=== PATIENT | male | born 2000 | race Caucasian/White ===

== ENCOUNTER → 2019-11-06 | Outpatient (CLI) | payer BC ==
--- NOTE | 2019-11-06 13:51 | ECHOF ---
Referral Reason:Palpitations R00.2 Elevated blood pressure R03.0 MEASUREMENTS -------- HEIGHT: 180.3 cm WEIGHT: 86.2 kg BP: 115/62 RVIDd: 2.7 cm (< 3.3) IVSd: 1.1 cm (0.6 - 1.1) LVIDd: 4.6 cm (3.9 - 5.3) LVPWd: 1.2 cm (0.6 - 1.1) IVSs: 1.5 cm LVIDs: 2.8 cm LVPWs: 2.0 cm LAESV Index (A-L): 18.63 ml/m Ao Diam: 2.9 cm (2.0 - 3.7) AV Cusp: 2.1 cm (1.5 - 2.6) LA Diam: 2.5 cm (2.7 - 3.8) MV EXCURSION: 15.293 mm (> 18.000) MV EF SLOPE: 117 mm/s (70 - 150) EPSS: 0.9 cm MV E Miguel: 0.82 m/s MV DecT: 163 ms MV A Miguel: 0.56 m/s MV E/A Ratio: 1.48 RAP: 5.00 mmHg RVSP: 19.54 mmHg FINDINGS -------- Sinus rhythm. This was a technically good study. The left ventricular size is normal. Left ventricular wall thickness is normal. Overall left vent ricular systolic function is normal with, an EF between 55 - 60 %. The diastolic filling pattern is normal for the age of the patient 8.01. Right side appears enlarged but measures within normal limits. The left atrial size is normal. The right atrial size is normal. The aortic valve is trileaflet and appears structurally normal. The mitral valve is normal. There is trace mitral regurgitation. The tricuspid valve appears structurally normal. Trace tricuspid regurgitation present. Right marcus tricular systolic pressure is normal at < 35 mmHg. There is no pulmonic regurgitation present. The aortic root size is normal. Normal inferior vena cava with normal inspiratory collapse consistent with estimated right atrial pre ssure of 5 mmHg. There is no pericardial effusion. CONCLUSIONS -------- 1. Sinus rhythm. 2. This was a technically good study. 3. The left ventricular size is normal. 4. Left ventricular wall thickness is normal. 5. Overall left ventricular systolic function is normal with, an EF between 55 - 60 %. 6. The diastolic filling pattern is normal for the age of the patient 8.01 7. Right side appears enlarged but measures within normal limits. 8. The left atrial size is normal. 9. The right atrial size is normal. 10. The aortic valve is trileaflet and appears structurally normal. 11. The mitral valve is normal. 12. There is trace mitral regurgitation. 13. The tricuspid valve appears structurally normal. 14. Trace tricuspid regurgitation present. 15. Right ventricular systolic pressure is normal at < 35 mmHg. 16. There is no pulmonic regurgitation present. 17. The aortic root size is normal. 18. Normal inferior vena cava with normal inspiratory collapse consistent with estimated right atrial pressure of 5 mmHg. 19. There is no pericardial effusion. MULTI SHARE PROGRAM COORDINATOR: Ruba Vigil RDCS
== END | disposition home or self-care (01) ==
LOC: RADECHMAIN 11:11
PROVIDERS: ATTEND Pediatrics Adolescent Medicine
DX: R00.2 Palpitations (principal); R03.0 Elevated blood-pressure reading, without diagnosis of hypertension
CPT/HCPCS: 93306

== ENCOUNTER → 2023-04-21 | Outpatient (CLI) | payer BC ==
--- NOTE | 2023-04-21 11:49 | US ---
EXAMINATION TYPE: US groin LT DATE OF EXAM: 04/21/2023 COMPARISON: NONE CLINICAL INDICATION: Male, 22 years old with history of R19.00 INTRA-ABD AND PELVIC SWELLING, MASS AN D LUM; lt groin lump TECHNIQUE: Multiple grayscale and color Doppler ultrasound images of the left groin were obtained. FINDINGS/IMPRESSION: There is a indeterminate small 4 mm hypoechoic lesion within the soft tissues o f the left groin. No internal color flow demonstrated. No other lesion identified. No fluid collectio n or hernia. Possible small lymph node. Consider further evaluation with sampling as clinically indic ated.
== END | disposition home or self-care (01) ==
LOC: RADUSWWP 10:17
PROVIDERS: ATTEND Family Medicine
DX: R19.00 Intra-abdominal and pelvic swelling, mass and lump, unspecified site (principal)

== ENCOUNTER → 2023-05-04 | Outpatient (CLI) | payer BC ==
[2023-05-04 15:28] LABS: ALT 27 U/L (10-49); AST 34 U/L (14-35); Albumin 4.8 d/dL (3.8-4.9); Alkaline Phosphatase 75 U/L (41-126); Blood Urea Nitrogen 12.9 mg/dL (9.0-27.0); Calcium 9.5 mg/dL (8.7-10.3); Carbon Dioxide 26.3 mmol/L (21.6-31.8); Chloride 104 mmol/L (96-109); Chol/HDL Ratio 3.11 Ratio; Glucose 92 mg/dL (70-110); LDL Cholesterol,Calculated 92.1 mg/dL (0.0-131.0); Potassium 4.2 mmol/L (3.5-5.5); Sodium 141 mmol/L (135-145); Total Bilirubin 0.5 mg/dL (0.3-1.2); Total Protein 6.8 d/dL (6.2-8.2); VLDL Calculation 13.02 mg/dL (5.00-40.00)
[2023-05-04 16:12] LABS: Basophils # (A) 0.09 X 10*3/uL (0.00-0.10); Basophils % (A) 1.7 %; Eosinophils # (A) 0.12 X 10*3/uL (0.04-0.35); Eosinophils % (A) 2.3 %; HCT 44.7 % (39.6-50.0); HGB 14.7 d/dL (13.0-17.0); Lymphocytes # (A) 1.85 X 10*3/uL (0.90-5.00); Lymphocytes % (A) 35.8 %; MCH 29.3 pg (27.0-32.0); MCHC 32.9 d/dL (32.0-37.0); MCV 89.2 FL (80.0-97.0); Mean Platelet Volume 10.3 FL (9.5-12.2); Monocytes # (A) 0.68 X 10*3/uL (0.20-1.00); Monocytes % (A) 13.2 %; NRBC Per 100 WBC 0 X 10*3/uL (0.00-0.01); Neutrophils # (A) 2.41 X 10*3/uL (1.80-7.70); Neutrophils % (A) 46.6 %; Platelet Count 262 X 10*3/uL (140-440); RBC 5.01 X 10*6/uL (4.40-5.60); RDW 13.1 % (11.5-14.5); WBC 5.17 X 10*3/uL (4.50-10.00)
== END | disposition home or self-care (01) ==
LOC: LABWHC1 07:57
PROVIDERS: ATTEND Family Medicine
DX: Z00.00 Encounter for general adult medical examination without abnormal findings (principal); R19.00 Intra-abdominal and pelvic swelling, mass and lump, unspecified site
CPT/HCPCS: 36415; 80053; 80061; 82306; 83036; 84443; 85025

== ENCOUNTER → 2023-08-16 | Outpatient (CLI) | payer BC ==
--- NOTE | 2023-08-22 07:20 | CT ---
EXAMINATION TYPE: CT abdomen pelvis wo/w con CT DLP: 1730.9 mGycm, Automated exposure control for dose reduction was used. DATE OF EXAM: 08/16/2023 10:30 AM COMPARISON: CT abdomen pelvis 05/18/2023 CLINICAL INDICATION:Male, 22 years old with history of N50.812; LEFT TESTES PAIN TECHNIQUE: Axial CT of the abdomen and pelvis was performed both without and following IV contrast d emonstration. Sagittal and coronal reformats were created on a separate workstation. Contrast used:100 mL of Isovue 300 with IV Contrast, (none if empty) Oral contrast used: with Oral Contrast (none if empty) FINDINGS: LOWER CHEST: Unremarkable ABDOMEN LIVER: Unremarkable GALLBLADDER AND BILE DUCTS: Unremarkable gallbladder. No biliary ductal dilatation. PANCREAS: Unremarkable. SPLEEN: Unremarkable. ADRENAL GLANDS: Unremarkable. KIDNEYS AND URETERS: Kidneys enhance symmetrically. No evidence of hydronephrosis or visible renal ca lculus. A 9 mm cyst in the right kidney upper pole. The ureters are unremarkable. PELVIS BLADDER: Unremarkable REPRODUCTIVE: Unremarkable prostate. ABDOMEN & PELVIS STOMACH AND BOWEL: Contrast traverses the stomach and small bowel loops without evidence of obstructi on or focal abnormality. Contrast reaches the proximal descending colon. No definite colonic abnormal ity is seen. The appendix is not seen with certainty but there is no inflammatory process seen in the pericecal region. PERITONEUM/RETROPERITONEUM: No evidence of pneumoperitoneum or free fluid. VASCULATURE: Unremarkable enhancement of the aorta and branches. No evidence of AAA. Portal veins ar e enhancing. Splenic vein is patent. LYMPH NODES: No evidence of abdominal pelvic lymphadenopathy. Nonenlarged nodes in the inguinal regio ns. SOFT TISSUE/ABDOMINAL WALL: Unremarkable MUSCULOSKELETAL: No acute osseous abnormalities. IMPRESSION: No acute abnormality in the abdomen or pelvis.
== END | disposition home or self-care (01) ==
LOC: RADCTMAIN 08:35
PROVIDERS: ATTEND Surgery
DX: N50.812 Left testicular pain (principal)
CPT/HCPCS: 74178; Q9967

== ENCOUNTER → 2023-08-30 | Outpatient (CLI) | payer BC | END | disposition home or self-care (01) | LOC: LABWHC1 12:08 | PROVIDERS: ATTEND Surgery | DX: N50.812 Left testicular pain (principal) | CPT/HCPCS: 36415; 83615 ==